=== PATIENT | male | born 1965 | race Caucasian/White ===

== ENCOUNTER → 2024-08-31 14:53 | Outpatient (REF) | payer BC, SELFPAY | LOC: HWRAD 14:53 | PROVIDERS: ATTENDING PHYSICIAN Nurse Practitioner Family | DX: R06.01 Orthopnea (principal) | CPT/HCPCS: 71046 ==

== ENCOUNTER → 2024-09-18 15:52 | Outpatient (REF) | payer BC, SELFPAY | LOC: RCS 15:52 | PROVIDERS: ATTENDING PHYSICIAN Nurse Practitioner Family | DX: R06.01 Orthopnea (principal) | CPT/HCPCS: 93306 ==

== ENCOUNTER → 2024-09-19 10:26 | Outpatient (REF) | payer BC, SELFPAY | LOC: RCS 10:26 | PROVIDERS: ATTENDING PHYSICIAN Nurse Practitioner Family | DX: R06.01 Orthopnea (principal) | CPT/HCPCS: 93225; 93226 ==